=== PATIENT | female | born 1975 | race African-American/Black ===

== ENCOUNTER 2018-10-20 23:17 | Emergency (ER) | payer OTHER ==
[~2018-10-20] VITALS: Ht 170.2 cm; Wt 85.0 kg
[2018-10-21 03:52] VITALS: BP 115/72
[2018-10-21] MEDS ORDERED: LORAZEPAM 0.5MG TABLET PO ONE (04:30)
[2018-10-21 04:47] LABS: CLARITY URINE CLOUDY (CLEAR); COLOR URINE YELLOW (YELLOW); KETONES URINE TRACE (NEGATIVE); LEUKOCYTE ESTERASE URINE TRACE (NEGATIVE); NITRITE URINE NEGATIVE (NEGATIVE); OCCULT BLOOD URINE NEGATIVE (NEGATIVE); PROTEIN URINE TRACE (NEGATIVE); SPECIFIC GRAVITY URINE 1.036 (1.005-1.030)
[2018-10-21 04:50] LABS: BASOPHILS % 0.4 % (0.0-2.0); EOSINOPHILS % 2.4 % (0.0-5.0); HEMATOCRIT. 38.6 % (36.0-48.0); HEMOGLOBIN. 12.9 g/dL (12.0-16.0); LYMPHOCYTES % 31.7 % (20.0-50.0); MEAN CORPUSCULAR HEMOGLOBIN 27.8 pg (28.0-32.0); MEAN CORPUSCULAR VOLUME 83.2 fL (81.0-99.0); MEAN PLATELET VOLUME 7.9 fl (7.4-10.4); MONOCYTES % 6.8 % (2.0-8.0); NEUTROPHILS % 58.7 % (40.0-76.0); PLATELET 293 x1000/uL (130-400); RED BLOOD CELL COUNT 4.63 mill/uL (4.2-5.4); RED CELL DISTRIBUTION WIDTH 15.1 % (11.6-14.6)
[2018-10-21 04:57] LABS: HCG SCREEN NEGATIVE
[2018-10-21 04:58] LABS: CHLORIDE 107 mEq/L (98-107)
[2018-10-21 05:02] LABS: ETHANOL BLOOD < 10 mg/dL
[2018-10-21] MEDS ORDERED: CEPHALEXIN 250MG CAPSULE PO ONE (05:45)
== END 2018-10-21 10:28 | disposition left against medical advice (07) ==
LOC: ER 10-21 10:18
DX: R45.851 Suicidal ideations (principal); F32.9 Major depressive disorder, single episode, unspecified; Z59.0 Homelessness; Z98.890 Other specified postprocedural states
CPT/HCPCS: 36415; 80048; 80307; 80329; 81003; 81025; 84703; 85025; 99284; G0482

== ENCOUNTER 2020-01-02 13:01 | Emergency (ER) | payer OTHER ==
[~2020-01-02] VITALS: Ht 172.7 cm; Wt 90.0 kg
[2020-01-02] MEDS ORDERED: METHYLPREDNISOLONE SOD SUCC 125 MG/2 ML VIAL IM STA (14:37)
[2020-01-02] MEDS ORDERED: IPRATROPIUM BROMIDE (0.02%) 0.5MG/2.5ML NEB HHN STA (14:37)
[2020-01-02] MEDS ORDERED: SODIUM CHLORIDE 0.9% 1,000 ML IV ONE (14:37)
[2020-01-02 14:54] LABS: BASOPHILS % 0.6 % (0.0-2.0); EOSINOPHILS % 2.7 % (0.0-5.0); HEMATOCRIT. 38.8 % (36.0-48.0); HEMOGLOBIN. 13.4 g/dL (12.0-16.0); LYMPHOCYTES % 26.5 % (20.0-50.0); MEAN CORPUSCULAR HEMOGLOBIN 28.2 pg (28.0-32.0); MEAN CORPUSCULAR VOLUME 81.7 fL (81.0-99.0); MEAN PLATELET VOLUME 7.3 fl (7.4-10.4); MONOCYTES % 7.5 % (2.0-8.0); NEUTROPHILS % 62.7 % (40.0-76.0); PLATELET 289 x1000/uL (130-400); RED BLOOD CELL COUNT 4.75 mill/uL (4.2-5.4); RED CELL DISTRIBUTION WIDTH 15.8 % (11.6-14.6)
[2020-01-02 15:02] LABS: CHLORIDE 108 mEq/L (98-107)
[2020-01-02 15:03] LABS: PROTHROMBIN TIME 10.9 sec (9.6-11.0)
[2020-01-02 15:08] LABS: HCG SCREEN NEGATIVE
[2020-01-02] MEDS: ALBUTEROL (0.083%) 2.5MG/3ML NEB HHN SCH ×3 (15:25→16:27)
[2020-01-02] MEDS ORDERED: ASPIRIN 325MG EC TABLET PO ONE (16:30)
[2020-01-02 17:10] VITALS: BP 133/73
== END 2020-01-02 17:15 | disposition home or self-care (01) ==
LOC: ER 13:16 → CANBEDREQ 23:53
DX: J20.9 Acute bronchitis, unspecified (principal); J45.909 Unspecified asthma, uncomplicated; Z87.01 Personal history of pneumonia (recurrent)
CPT/HCPCS: 36415; 71045; 80053; 83605; 83880; 84484; 84703; 85025; 85610; 87804; 93005; 94640; 96372; 99285; J2930; J7030; Z7610

== ENCOUNTER 2021-11-19 17:28 | Emergency (ER) | payer MEDICARE, MEDICAID ==
[~2021-11-19] VITALS: Ht 167.6 cm; Wt 91.0 kg
[2021-11-19] MEDS ORDERED: ALBUTEROL (0.083%) 2.5MG/3ML NEB HHN STA (18:04)
[2021-11-19] MEDS ORDERED: IPRATROPIUM BROMIDE (0.02%) 0.5MG/2.5ML NEB HHN STA (18:04)
[2021-11-19] MEDS ORDERED: PREDNISONE 20MG TABLET PO ONE (18:30)
[2021-11-19] MEDS ORDERED: ALBU6.7H15 INH (19:24)
[2021-11-19] MEDS ORDERED: P20 MT (19:24)
[2021-11-19 19:40] VITALS: BP 145/80
== END 2021-11-19 19:40 | disposition home or self-care (01) ==
LOC: ER 17:28
DX: J40 Bronchitis, not specified as acute or chronic (principal); R06.2 Wheezing; Z88.2 Allergy status to sulfonamides; Z87.01 Personal history of pneumonia (recurrent)
CPT/HCPCS: 71045; 81025; 94640; 99283; J7512